=== PATIENT | male | born 1960 | race Hispanic/Latino ===

== ENCOUNTER 2019-01-17 16:27 | Outpatient (CLI) | payer BC ==
[2019-01-17 17:44] LABS: #Basophils 0.1 thou/uL (0.0-0.2); #Eosinphils 0.4 thou/uL (0.0-0.7); #Lymphocytes 2.4 thou/uL (1.20-3.40); #Monocytes 0.5 thou/uL (0.11-0.59); #Neutrophils 4.5 thou/uL (1.40-6.50); %Basophils 0.8 % (0.0-1.0); %Lymphocytes 30.7 % (21.0-51.0); %Monocytes 6.1 % (0.0-10.0); %Neutrophils 57.4 % (42.0-75.0); Hemoglobin 15.2 g/dL (14.0-18.0); Mean Corpuscular HGB CONC 35.3 g/dL (32.0-36.0); Mean Corpuscular Hemoglobin 31.4 pg (27.0-31.0); Platelet Count 180 thou/uL (130-400); RBC Distribution Width 11.8 % (11.5-14.5); Red Blood Cell (RBC) Count 4.85 mill/uL (4.70-6.10); White Blood Cell (WBC) Count 7.8 thou/uL (4.8-10.8)
[2019-01-17 18:09] LABS: ALT (SGPT) 58 U/L (8-55); AST (SGOT) 36 U/L (5-34); Alkaline Phosphatase 50 U/L (40-150); Anion Gap 14 mmol/L (10-20); BUN (Urea Nitrogen) 21 mg/dL (8.4-25.7); Bilirubin, Total 0.6 mg/dL (0.2-1.2); Calc. Creatinine Clearance 0 mL/min (70-130); Calcium 9.9 mg/dL (7.8-10.44); Carbon Dioxide 24 mmol/L (22-29); Chloride 104 mmol/L (98-107); Estimated GFR-MDRD 75; Globulin 2.8 g/dL (2.4-3.5); Glucose 141 mg/dL (70-105); Potassium 4.1 mmol/L (3.5-5.1); Protein, Total 7.8 g/dL (6.0-8.3); Sodium 138 mmol/L (136-145)
--- NOTE | 2019-01-19 11:59 | EKG ---
Test Reason : Blood Pressure : / mmHG Vent. Rate : 067 BPM Atrial Rate : 067 BPM P-R Int : 154 ms QRS Dur : 094 ms QT Int : 392 ms P-R-T Axes : 043 014 041 degrees QTc Int : 414 ms Normal sinus rhythm Incomplete right bundle branch block Borderline ECG When compared with ECG of 19-MAR-2014 13:19, No significant change was found Confirmed by DR. Christiano MERCEDES ([id number]) on 01/19/2019 11:59:25 AM Referred By: SHAWANDA Confirmed By:DR. Christiano MERCEDES
== END 2019-01-17 16:28 | disposition home or self-care (01) ==
LOC: LABBT 16:27
PROVIDERS: ATTEND Surgery
DX: Z01.818 Encounter for other preprocedural examination (principal); K42.9 Umbilical hernia without obstruction or gangrene
CPT/HCPCS: 80053; 85025; 93005; 93010

== ENCOUNTER 2019-01-21 05:42 | Day surgery (SDC) | payer BC ==
[2019-01-17 16:54] VITALS: BMI 38.9
[2019-01-21] MEDS ORDERED: Bupivacaine HCl 0.5%/Epinephrine 1:200,000/PF 30 ml Vial ONE (06:48)
[2019-01-21] MEDS ORDERED: Fentanyl 250 MCG/5 ML VIAL ONE (07:36)
--- NOTE | 2019-01-21 09:07 | OP ---
DATE OF PROCEDURE: 01/21/2019 PREOPERATIVE DIAGNOSIS: Umbilical hernia. PROCEDURE PERFORMED: Umbilical hernia repair with mesh. INDICATIONS: A 58-year-old male, who has a painful umbilical hernia. FINDINGS: A 1.5 cm defect, 6.4 cm piece of mesh used. DESCRIPTION OF PROCEDURE: After informed consent was obtained, the patient was taken to the operating room and given general mask anesthesia, placed in the supine position. Abdomen was prepped and draped in usual fashion. Local anesthesia was infiltrated subcutaneously and deep. Subumbilical incision was performed. Subcu divided sharply. The hernia sac was dissected from surrounding skin sharply, then circumferentially to the fascia. The hernia sac was excised. The contents reduced. It was about a 1.5 cm defect, 6.4 cm Proceed mesh was hydrated, rolled, inserted and unrolled, then sutured to the abdominal wall with interrupted 0 Ethibond suture. Then, after hemostasis was assured, it was reapproximated to the fascia with interrupted 3-0 Vicryl to restore umbilical contour and the skin closed with interrupted 4-0 Rapide. Steri-Strips applied. Sterile bandage applied. The patient tolerated the procedure well, transferred to Recovery in good condition. Sponge and needle count verified correct x2. Job ID: [id number]
[2019-01-21] MEDS ORDERED: HYDROcodone/Acetaminophen 5/325 mg Tablet ONE (09:59)
== END 2019-01-21 10:35 | disposition home or self-care (01) ==
LOC: SDC 05:42
PROVIDERS: ATTEND Surgery
PROC: 0WUF0JZ Supplement Abdominal Wall with Synthetic Substitute, Open Approach (ICD-10-PCS; principal; 2019-01-21)
DX: K42.9 Umbilical hernia without obstruction or gangrene (principal); I10 Essential (primary) hypertension; E11.9 Type 2 diabetes mellitus without complications; E78.5 Hyperlipidemia, unspecified; G47.30 Sleep apnea, unspecified; E66.9 Obesity, unspecified; Z68.39 Body mass index [BMI] 39.0-39.9, adult; Z79.899 Other long term (current) drug therapy; Z99.89 Dependence on other enabling machines and devices
CPT/HCPCS: J0670; J0690; J3010

== ENCOUNTER 2019-09-21 03:21 | Emergency (ER) | payer BC, SELFPAY ==
[2019-09-21] MEDS ORDERED: Acetaminophen 500 MG TAB ONE (03:43)
--- NOTE | 2019-09-21 09:03 | RAD ---
LEFT KNEE FOUR VIEWS: HISTORY: Fall with injury and pain to knee. FINDINGS: Mild degenerative change. No evidence of acute fracture. No joint effusion. IMPRESSION: No acute findings. POS: SARAH
--- NOTE | 2019-09-21 09:05 | RAD ---
LEFT ANKLE THREE VIEWS: HISTORY: Ankle pain with injury. FINDINGS: No significant soft tissue swelling. No evidence of fracture. No osseous abnormality. Small spur from the calcaneus. IMPRESSION: No acute findings. POS: GIANFRANCO
== END 2019-09-21 04:30 | disposition home or self-care (01) ==
LOC: ERS 03:21
DX: S93.402A Sprain of unspecified ligament of left ankle, initial encounter (principal); E11.9 Type 2 diabetes mellitus without complications; W01.0XXA Fall on same level from slipping, tripping and stumbling without subsequent striking against object, initial encounter

== ENCOUNTER 2020-04-02 11:08 | Emergency (ER) | payer BC ==
--- NOTE | 2020-04-02 12:30 | RAD ---
EXAM: 3 views of the right foot HISTORY: Foot pain COMPARISON: None FINDINGS: 3 views of the right foot shows no evidence of acute fracture or dislocation. No soft tissu e swelling is seen. No degenerative changes are present. IMPRESSION: No evidence of acute osseous abnormality.
--- NOTE | 2020-04-02 12:36 | RAD ---
EXAM: 3 views of the right ankle HISTORY: Ankle pain COMPARISON: None FINDINGS: 3 views of the right ankle shows no evidence of acute fracture or dislocation. No soft tiss ue swelling is seen. No degenerative changes are present. IMPRESSION: No evidence of acute osseous abnormality.
--- NOTE | 2020-04-02 12:36 | RAD ---
EXAM: 4 views of the right knee HISTORY: Knee pain COMPARISON: None FINDINGS: No knee effusion is seen. There is no evidence of acute fracture or dislocation. No signifi cant degenerative changes are seen. No soft tissue swelling is present. IMPRESSION: No evidence of acute osseous abnormality.
[2020-04-02] MEDS ORDERED: Ketorolac Tromethamine 30 MG/ML VIAL ONE (12:44)
== END 2020-04-02 13:40 | disposition home or self-care (01) ==
LOC: ERS 11:08
DX: S83.421A Sprain of lateral collateral ligament of right knee, initial encounter (principal); E78.00 Pure hypercholesterolemia, unspecified; E78.5 Hyperlipidemia, unspecified; E11.40 Type 2 diabetes mellitus with diabetic neuropathy, unspecified; W18.40XA Slipping, tripping and stumbling without falling, unspecified, initial encounter
CPT/HCPCS: 36415; 80061; 80076; 82947; 83036; 84550; 96372; J1885

== ENCOUNTER 2020-05-18 09:46 | Outpatient (CLI) | payer BC ==
--- NOTE | 2020-05-18 12:07 | MRI ---
RIGHT KNEE MRI WITHOUT IV CONTRAST: Date: 05/18/2020 HISTORY: Right knee pain, sprain of MCL right knee. FINDINGS: Multiplanar, multisequence MRI examination of the right knee is performed. There is some suprapatellar joint fluid. Very small amount of fluid within the gastrocnemius semimemb ranosus recess. Small osteochondral focus involving the superior posterior medial femoral condyle wit hout adjacent marrow edema and some associated subchondral cystic change. Large irregular radial tear of the posterior horn/posterior root of the medial meniscus with approximately 0.8 cm of separation at the tear with medial subluxation of the body of the medial meniscus with some associated intrasubs tance degenerative signal. Evidence for a subchondral insufficiency or stress-type fracture involving the medial femoral condyle with some prominent adjacent marrow edema. Fluid density surrounding the soft tissues medially and adjacent to the MCL, evidence for MCL sprain. Anterior and posterior crucia te ligaments, lateral collateral ligament complex, and quadriceps and patellar tendons appear intact. Minimal increased signal in the popliteus muscle, evidence for minimal strain. The popliteus tendon and fibular collateral ligament appear intact. Normal appearing lateral meniscus. IMPRESSION: 1. Large full thickness irregular radial tear with wide separation and subluxation medially of the b brittaney of the medial meniscus with some associated intrasubstance degenerative signal. 2. Insufficiency or stress-type subchondral fracture involving the medial femoral condyle with adjac ent marrow edema. 3. Evidence for MCL sprain. 4. Evidence for popliteus muscle strain, mild. 5. Subcutaneous edema in the superficial medial subcutaneous tissue. 6. Small, remote appearing subchondral cystic focus of the superior posterior medial femoral condyle . 7. No evidence for other significant acute process. POS: RRE
== END 2020-05-18 09:47 | disposition home or self-care (01) ==
LOC: TBSIIMAG 09:46
PROVIDERS: ATTEND Orthopaedic Surgery
DX: S83.411A Sprain of medial collateral ligament of right knee, initial encounter (principal); R60.0 Localized edema; M17.11 Unilateral primary osteoarthritis, right knee; S83.241A Other tear of medial meniscus, current injury, right knee, initial encounter; S86.111A Strain of other muscle(s) and tendon(s) of posterior muscle group at lower leg level, right leg, initial encounter

== ENCOUNTER 2020-07-16 07:41 | Outpatient (CLI) | payer BC ==
--- NOTE | 2020-07-16 08:51 | MRI ---
MR the lumbar spine without contrast: 07/16/2020 History: Back pain with right lower extremity radiculopathy COMPARISON: None. TECHNIQUE: Multiplanar multisequence MR images were obtained of lumbar spine without IV contrast FINDINGS: On the basis of 5 lumbar type vertebral bodies, conus medullaris terminates at [id number] level. Sagittal STIR imaging demonstrates degenerative endplate edema at the L5-S1 level laterally on the le ft. T12-L1:Mild bilateral facet hypertrophy. Intervertebral disc height and signal intensity within guero l limits with no significant central canal or neural foraminal stenosis. Right-sided anterior osteophyte formation present. L1-2:There is disc space narrowing with disc desiccation and disc bulge. Bilateral facet hypertrophy present. Mild central canal stenosis. No significant neural foraminal stenosis. L2-3:There is disc space narrowing with disc desiccation and disc bulge. Bilateral facet hypertrophy present. No significant neural foraminal stenosis. Mild central canal stenosis. L3-4:There is disc space narrowing with disc desiccation and disc bulge. Bilateral facet hypertrophy. Mild central canal stenosis. No significant neural foraminal stenosis. L4-5:Prominent bilateral facet hypertrophy. There is disc space narrowing with disc desiccation. Mild anterolisthesis present at L4-5 measuring approximately 5-6 mm. Mild central canal stenosis. Mild bilateral neural foraminal stenosis, right greater than left. L5-S1:Prominent bilateral facet hypertrophy. There is disc space narrowing with disc desiccation and mild disc bulge. No central canal stenosis. Severe bilateral neural foraminal stenosis. Image retroperitoneal structures demonstrateno acute findings. IMPRESSION: Multilevel lumbar spine degenerative change, most significant stenosis involving the bilateral neural foramina at the L5-S1 level.
== END 2020-07-16 07:42 | disposition home or self-care (01) ==
LOC: TBSIIMAG 07:41
PROVIDERS: ATTEND Orthopaedic Surgery
DX: M43.16 Spondylolisthesis, lumbar region (principal); M47.816 Spondylosis without myelopathy or radiculopathy, lumbar region; M48.07 Spinal stenosis, lumbosacral region
CPT/HCPCS: 72148

== ENCOUNTER 2020-10-24 15:58 | Outpatient (CLI) | payer BC ==
--- NOTE | 2020-10-24 17:14 | RAD ---
EXAM: Chest 2 views: HISTORY: Bronchitis COMPARISON: None. FINDINGS: There is a normal-sized cardiomediastinal silhouette. There is no evidence of consolidation, mass, or pleural effusion. Degenerative changes are seen in the spine. IMPRESSION: No evidence of acute cardiopulmonary disease
== END 2020-10-24 15:59 | disposition home or self-care (01) ==
LOC: BICRAD 15:58
PROVIDERS: ATTEND Family Medicine
DX: J40 Bronchitis, not specified as acute or chronic (principal)
CPT/HCPCS: 71046

== ENCOUNTER 2020-10-29 11:23 | Outpatient (CLI) | payer BC ==
--- NOTE | 2020-10-29 12:18 | RAD ---
4 views lumbar spine: 10/29/2020 COMPARISON: None HISTORY: Lumbar radiculopathy FINDINGS: 5 lumbar type vertebral bodies are present with intact pedicles on frontal imaging. The lateral neutral exam demonstrates retrolisthesis at L3-4 measuring 5 mm and anterolisthesis at L4 -5 measuring 9 mm. The extension imaging demonstrates the retrolisthesis at L3-4 measuring 5 mm and the anterolisthesis at L4-5 measuring 8 mm. The flexion and extension demonstrates no significant retrolisthesis at L3-4. Anterolisthesis at L4-5 measures 7 mm on flexion. Multilevel lower lumbar spine facet hypertrophy. Posterior osteophyte at L1-2, L2-3, and L3-4 noted. At T12-L1 there is anterior osteophyte formation. IMPRESSION: Multilevel lumbar spine degenerative change with no acute fracture or dislocation seen.
== END 2020-10-29 11:24 | disposition home or self-care (01) ==
LOC: BICRAD 11:23
PROVIDERS: ATTEND Neurological Surgery
DX: M47.26 Other spondylosis with radiculopathy, lumbar region (principal)
CPT/HCPCS: 72100